=== PATIENT | female | born 1985 | race Hispanic/Latino ===

== ENCOUNTER 2016-06-04 00:15 | Inpatient (IN) ==
[2016-06-04] MEDS ORDERED: REGLAN PO ONE (00:27)
[2016-06-04] MEDS ORDERED: KEFZOL 1 GM/D5W 1 GM/50 ML IVPB IV PRN (00:27)
[2016-06-04] MEDS ORDERED: PEPCID IV PRN (00:27)
[2016-06-04] MEDS ORDERED: PEPCID PO PRN (00:27)
[2016-06-04] MEDS ORDERED: PEPCID PO ONE (00:27)
[2016-06-04] MEDS ORDERED: TYLENOL PO PRN (00:27)
[2016-06-04] MEDS ORDERED: AMBIEN PO PRN ×2 (00:27→12:48)
[2016-06-04] MEDS ORDERED: STADOL IV PRN ×3 (00:27)
[2016-06-04] MEDS ORDERED: BRETHINE SUBQ PRN (00:27)
[2016-06-04] MEDS ORDERED: ZOFRAN IV PRN (00:27)
[2016-06-04] MEDS ORDERED: LR 1,000 ML IV ONE (01:30)
[2016-06-04] MEDS ORDERED: AMPICILLIN 2 GM/NS 2 GM/100 ML IVPB IV ONE (02:00)
[2016-06-04] MEDS ORDERED: CYTOTEC PO ONE (02:00)
[2016-06-04 02:37] LABS: URINE SOURCE VOIDED
[2016-06-04 02:42] LABS: BILIRUBIN URINE NEGATIVE (NEGATIVE); BLOOD URINE NEGATIVE (NEGATIVE); CLARITY CLEAR (CLEAR); COLOR YELLOW; GLUCOSE URINE NEGATIVE (NEGATIVE); LEUKOCYTES URINE TRACE (NEGATIVE); NITRITE URINE NEGATIVE (NEGATIVE); PROTEIN URINE TRACE mg/dL (NEGATIVE); SP GRAVITY URINE 1.015; UROBILINOGEN URINE NORMAL
[2016-06-04 02:43] LABS: MANUAL DIFF NEEDED? NO
[2016-06-04 02:51] LABS: BASO% 0.4 % (0.0-0.8); EOS# 0.37 X1000 (0.0-0.7); EOS% 4.8 % (0.0-10.0); HEMATOCRIT 31.9 % (37.0-47.0); HEMOGLOBIN 10.5 g/dL (12.0-16.0); IMM GRAN# 0.03 X1000 (0.0-0.04); IMM GRAN% 0.4 % (0.0-0.5); LYMPH# 2.28 X1000 (1.2-3.4); LYMPH% 29.9 % (20.5-51.1); MCH 26.3 PG (27-31); MCHC 32.9 g/dL (33-37); MCV 79.9 FL (81-99); MONO# 0.73 X1000 (0.11-0.59); MONO% 9.6 % (1.7-9.3); MPV 10.4 FL (7.4-10.4); NEUT% 54.9 % (42.2-75.2); PLT 340 X1000 (130-400); RBC 3.99 XMIL (4.2-5.4)
[2016-06-04] MEDS: AMPICILLIN 1 GM/NS 1 GM/50 ML IVPB IV SCH ×3 (06:10→14:11)
[2016-06-04] MEDS ORDERED: PITOCIN 30 UNITS/LR 30 UNITS/500 ML IV.SOLN IV SCH (07:00)
[2016-06-04] MEDS ORDERED: MINERAL OIL ONE (07:25)
[2016-06-04] MEDS ORDERED: XYLOCAINE-MPF 1% ONE (07:25)
[2016-06-04] MEDS ORDERED: PITOCIN IM PRN (12:48)
[2016-06-04] MEDS ORDERED: HYDROXYZINE PO PRN (12:48)
[2016-06-04] MEDS ORDERED: BENADRYL IV PRN (12:48)
[2016-06-04] MEDS ORDERED: MINERAL OIL PO PRN (12:48)
[2016-06-04] MEDS ORDERED: M-M-R II VACCINE SUBQ ONE (12:48)
[2016-06-04] MEDS ORDERED: BENADRYL PO PRN (12:48)
[2016-06-04] MEDS ORDERED: PITOCIN 30 UNITS/LR 30 UNITS/500 ML IV.SOLN IV ONE (12:48)
[2016-06-04] MEDS ORDERED: NORCO-10 PO PRN (12:48)
[2016-06-04] MEDS ORDERED: CYTOTEC PO PRN (12:48)
[2016-06-04] MEDS ORDERED: XYLOCAINE-MPF 1% INJ PRN (12:48)
[2016-06-04] MEDS ORDERED: HYDROXYZINE IM PRN (12:48)
[2016-06-04] MEDS ORDERED: PERI MEDS (DERMOPLAST/NUPERCAINAL/TUCKS) MISC PRN (12:48)
[2016-06-04] MEDS ORDERED: PITOCIN 20 UNITS/LR 20 UNITS/1,000 ML IV.SOLN IV SCH (12:48)
[2016-06-04] MEDS ORDERED: BOOSTRIX VACCINE IM ONE (12:48)
[2016-06-04] MEDS: MOTRIN PO PRN (14:07)
[2016-06-04] MEDS: NORCO-5 PO PRN (14:07)
--- NOTE | 2016-06-04 16:17 | OPERATIVE NOTE ---
PROCEDURE DATE: 06/04/2016 PROCEDURE: Spontaneous vaginal delivery. PROCEDURE NOTE: The patient underwent sterile controlled spontaneous vaginal delivery of a viable male infant, weighing 6 pounds 10 ounces with Apgars of 9 and 10. Cord doubly clamped and cut. Infant handed off to waiting pediatric staff. Cord blood obtained. Placenta delivered spontaneously and intact. Uterus firm with Pitocin and massage. Uterus, cervix and vagina explored. Bilateral periurethral lacerations hemostatic without repair. Loose nuchal x1 reduced at the perineum. No complications. ESTIMATED BLOOD LOSS: 200 mL. cc: Helen Dominguez MD
[2016-06-04] MEDS ORDERED: PERICOLACE PO SCH (21:00)
[2016-06-05] MEDS: MOTRIN PO PRN ×2 (00:19→12:07)
[2016-06-05 06:05] LABS: HEMATOCRIT 29.8 % (37.0-47.0); HEMOGLOBIN 9.2 g/dL (12.0-16.0); MCH 25.2 PG (27-31); MCHC 30.9 g/dL (33-37); MCV 81.6 FL (81-99); MPV 10.6 FL (7.4-10.4); RBC 3.65 XMIL (4.2-5.4)
[2016-06-05] MEDS: NORCO-5 PO PRN (12:07)
== END 2016-06-05 12:34 | disposition home or self-care (01) ==
LOC: P.LD 00:15
PROVIDERS: ADMIT Obstetrics & Gynecology; ATTEND Obstetrics & Gynecology